=== PATIENT | female | born 1975 | race American Indian/Alaskan Native ===

== ENCOUNTER 2018-03-16 06:36 | Emergency (ER) | payer SELFPAY ==
[2018-03-16 06:42] VITALS: BP 159/102
[2018-03-16 07:41] LABS: Bacteria,Urine 4+ /HPF (Negative); Bilirubin,Urine NEG (Negative); Blood,Urine SM (Negative); Color,Urine Yellow (Yellow); Mucus,Urine FEW /HPF; Urobilinogen,Urine < 2.0 mg/dL (<2.0)
--- NOTE | 2018-03-16 07:41 | Emergency Department Report ---
ED Fall HPI - General Chief Complaint: Fall Stated Complaint: HEADACHE,LEFT NECK PAIN Time Seen by Provider: 03/16/18 07:40 Source: patient Mode of arrival: Ambulatory Limitations: No Limitations - History of Present Illness Initial Comments: This is a 43 y.o. female that presents with left side neck and occipital pain s/ p fall 3 days ago. Patient reports falling in back yard while running from her Thursday night in her backyard. [place] and unsure if she tripped over something. She reported pulling has been on top of her when she initially fell. She is unsure if she hit her head on something. She felt fine initially but when she woke up the next morning felt stiffness to left side of neck. Patient reports feeling stiffness and numbness to left side of neck the next morning. Patient denies loss of consciousness, fever, nausea or vomiting, visual changes, chest pain, deformity, erythema or swelling. 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 denies: headache, numbness, weakness, chest paint, shortness of breath, abdominal pain, hematuria, unable to walk, lightheaded, vertigo, confusion - Related Data Previous Rx's Medication Instructions Recorded Last Taken Type Ibuprofen [Motrin 800 MG tab] 800 mg PO Q8HR PRN #20 tablet 03/16/18 Unknown Rx Tizanidine HCl [Zanaflex] 2 mg PO TID PRN #15 capsule 03/16/18 Unknown Rx traMADol [Ultram 50 MG tab] 50 mg PO Q6HR PRN #15 tablet 03/16/18 Unknown Rx Allergies Allergy/AdvReac Type Severity Reaction Status Date / Time No Known Allergies Allergy Verified 03/16/18 06:43 ED Review of Systems ROS: Stated complaint: HEADACHE,LEFT NECK PAIN Other details as noted in HPI Constitutional: denies: chills, fever Respiratory: denies: cough, shortness of breath, wheezing Cardiovascular: denies: chest pain, palpitations Gastrointestinal: denies: abdominal pain, nausea, vomiting, diarrhea Musculoskeletal: arthralgia (left neck pain). denies: back pain, joint swelling Skin: denies: rash, lesions Neurological: headache. denies: weakness, paresthesias Psychiatric: denies: anxiety, depression ED Past Medical Hx - Past Medical History Hx Hypertension: Yes Additional medical history: Lupus, hyperlipidemia - Surgical History Past Surgical History?: Yes Additional Surgical History: - Social History Smoking Status: Never Smoker Substance Use Type: Alcohol - Medications Home Medications: Home Medications Medication Instructions Recorded Confirmed Last Taken Type Ibuprofen [Motrin 800 MG tab] 800 mg PO Q8HR PRN #20 tablet 03/16/18 Unknown Rx Tizanidine HCl [Zanaflex] 2 mg PO TID PRN #15 capsule 03/16/18 Unknown Rx traMADol [Ultram 50 MG tab] 50 mg PO Q6HR PRN #15 tablet 03/16/18 Unknown Rx ED Physical Exam - General Limitations: No Limitations General appearance: alert, in no apparent distress - Neck Neck exam: Present: tenderness (midline tenderness in C2 through C4, palpable muscle spasm on left). Absent: full ROM (Limited range of motion secondary pain ), lymphadenopathy - Respiratory Respiratory exam: Present: normal lung sounds bilaterally. Absent: respiratory distress - Cardiovascular Cardiovascular Exam: Present: regular rate, normal rhythm. Absent: systolic murmur, diastolic murmur, rubs, gallop - GI/Abdominal GI/Abdominal exam: Present: soft, normal bowel sounds - Neurological Exam Neurological exam: Present: alert, oriented X3 - Psychiatric Psychiatric exam: Present: normal affect, normal mood - Skin Skin exam: Present: warm, dry, intact, normal color. Absent: rash ED Course Vital Signs 03/16/18 03/16/18 06:35 06:43 Temperature 97.9 F 98.1 F Pulse Rate 100 H 96 H Respiratory 18 16 Rate Blood Pressure 159/102 159/102 O2 Sat by Pulse 100 98 Oximetry ED Medical Decision Making - Lab Data Result diagrams: 03/16/18 08:35 - Radiology Data Radiology results: report reviewed CT HEAD WITHOUT CONTRAST: HISTORY: Fall. TECHNIQUE: Sequential 2.5mm CT images. COMPARISON: none. FINDINGS: Cerebral Parenchyma: Within normal limits. Cerebellum: Within normal limits. Brainstem: Within normal limits. Ventricles: Normal. Sella: Normal. Extra-axial spaces: Normal. Basal Cisterns: Normal. Intracranial Hemorrhage: None. Midline Shift: None. Calvarium: Normal. Sinuses: Normal. Mastoid Air Cells: Normal. Visualized Orbits: Normal. IMPRESSION: Cranial CT scan within normal limits. No acute process noted. CT SCAN OF THE CERVICAL SPINE: HISTORY: Fall. TECHNIQUE: Contiguous 1.25 mm axial images of the cervical spine were obtained. Sagittal and coronal reformatted images. FINDINGS: A mildly displaced fracture is identified involving the left transverse process of C3. Fracture lines are identified through the left transverse foramen. Small bony fragments are also identified within the left transverse foramen. The integrity of the left vertebral artery is unclear. No large area of hemorrhage is appreciated in this area. No additional cervical fractures are detected. There is mild reversal of the normal cervical lordosis. Mild degenerative disc disease is noted at C5-6. The remaining levels are unremarkable. No evidence for subluxation. Although intraspinal contents can be obscured on CT, no large epidural hematoma is suspected. IMPRESSION: Left transverse process fracture at C3 with involvement of the transverse foramen. Please see above. These findings were discussed with Dr. Garcia in the emergency department at 0810 hrs. CTA NECK: HISTORY: Fracture left transverse process. TECHNIQUE: Helical CT following IV contrast. Sagittal and coronal reformatted images. 3D volume rendering technique. Stenosis was calculated using NASCET criteria. FINDINGS: The visualized aortic arch, innominate artery and proximal bilateral subclavian arteries are widely patent with less than 20% stenosis. Within the right carotid system: Less than 20% stenosis. Within the left carotid system: Less than 20% stenosis. The cervical vertebral arteries are patent with less than 20% stenosis. Mildly displaced fracture of the left C3 transverse process is again identified. A bony fragment is identified within the transverse foramen but there is no evidence for injury to the left vertebral artery on CTA. No obvious extravasation of contrast. No thrombosis. IMPRESSION: Unremarkable CTA of the neck. The left vertebral artery appears intact on CTA. Please see above and consider further consultation. - Medical Decision Making This is a 43 y.o. female presents with neck pain and headache from falling 3 days ago at home. Patient was examined by me. History of hypertension, hyperlipidemia, and lupus. Hypertension, patient have history and did not take blood pressure medication prior to coming in, she is asymptomatic. Patient will take blood pressure medication when she arrives home. Obtained urinalysis , urine hCG, CMP, CT of cervical spine and head. Small blood, positive nitrates in urinalysis, negative hcg. Unremarkable CMP. Scans were read by radiologist, normal head CT scan, Left transverse process fracture at C3 with involvement of the transverse foramen. Please see above. These findings were discussed with Dr. Garcia in the emergency department at 0810 hrs. ordered CTA of neck, Mildly displaced fracture of the left C3 transverse process is again identified. A bony fragment is identified within the transverse foramen but there is no evidence for injury to the left vertebral artery on CTA. No obvious extravasation of contrast. No thrombosis. Consulted with Dr. Bentley orthopedics , start muscle relaxers and pain medication. Start Zanaflex, tramadol, and ibuprofen for pain. Follow up with Dr. Bentley in 2-3 days. Critical care attestation.: If time is entered above; I have spent that time in minutes in the direct care of this critically ill patient, excluding procedure time. ED Disposition Clinical Impression: Fracture of transverse process of cervical vertebra Qualifiers: Encounter type: initial encounter Fracture type: closed Qualified Code(s): S12.9XXA - Fracture of neck, unspecified, initial encounter Fall Qualifiers: Encounter type: initial encounter Qualified Code(s): W19.XXXA - Unspecified fall, initial encounter Disposition: TO HOME OR SELFCARE Is pt being admited?: No Does the pt Need Aspirin: No Condition: Stable Instructions: Cervical Fracture (ED), Soft Cervical Collar (ED) Additional Instructions: Rest Use ice or heat on affected area for 20 minutes and off for 2 hours. Take pain medication every 6 hours as needed for pain. Avoid driving or operating heavy machinery while taking muscle relaxers. Follow up with Primary Care Provider in 2-3 days. Prescriptions: Ibuprofen [Motrin 800 MG tab] 800 mg PO Q8HR PRN #20 tablet PRN Reason: Pain, Moderate (4-6) Tizanidine HCl [Zanaflex] 2 mg PO TID PRN #15 capsule PRN Reason: Muscle Spasm traMADol [Ultram 50 MG tab] 50 mg PO Q6HR PRN #15 tablet PRN Reason: Pain Referrals: SANDOR BENTLEY MD [Staff Physician] - 3-5 Days [facility] [Outside] - 3-5 Days Forms: Accompanied Note Time of Disposition: 11:12 Print Language: NAMIBIAN
[2018-03-16 07:44] LABS: HCG Qualitative,Urine Negative (Negative)
--- NOTE | 2018-03-16 08:11 | Cat Scan Report ---
CT HEAD WITHOUT CONTRAST: HISTORY: Fall. TECHNIQUE: Sequential 2.5mm CT images. COMPARISON: none. FINDINGS: Cerebral Parenchyma: Within normal limits. Cerebellum: Within normal limits. Brainstem: Within normal limits. Ventricles: Normal. Sella: Normal. Extra-axial spaces: Normal. Basal Cisterns: Normal. Intracranial Hemorrhage: None. Midline Shift: None. Calvarium: Normal. Sinuses: Normal. Mastoid Air Cells: Normal. Visualized Orbits: Normal. IMPRESSION: Cranial CT scan within normal limits. No acute process noted.
--- NOTE | 2018-03-16 08:19 | Cat Scan Report ---
CT SCAN OF THE CERVICAL SPINE: HISTORY: Fall. TECHNIQUE: Contiguous 1.25 mm axial images of the cervical spine were obtained. Sagittal and coronal reformatted images. FINDINGS: A mildly displaced fracture is identified involving the left transverse process of C3. Fracture lines are identified through the left transverse foramen. Small bony fragments are also identified within the left transverse foramen. The integrity of the left vertebral artery is unclear. No large area of hemorrhage is appreciated in this area. No additional cervical fractures are detected. There is mild reversal of the normal cervical lordosis. Mild degenerative disc disease is noted at C5-6. The remaining levels are unremarkable. No evidence for subluxation. Although intraspinal contents can be obscured on CT, no large epidural hematoma is suspected. IMPRESSION: Left transverse process fracture at C3 with involvement of the transverse foramen. Please see above. These findings were discussed with Dr. Garcia in the emergency department at 0810 hrs.
[2018-03-16 09:06] LABS: Alanine Aminotransferase 7 units/L (7-56); BUN/Creatinine Ratio 18; Blood Urea Nitrogen 11 mg/dL (7-17); Calcium 9.4 mg/dL (8.4-10.2); Hemolysis Index 1
--- NOTE | 2018-03-16 09:31 | Emergency Department Report ---
Blank Doc - Documentation Documentation: I spoke with Dr. Gonsales radiologist regarding cervical spine fx through the transverse foramen. I evaluated Ms. Miller. The injury took place 3 days earlier. She is neurovascularly intact. I am supervising this case. I discussed case with my ED colleague Mrs. Arciniega MAIL LIST LIBRARIAN. I recommended CT angiogram to rule out injury to the vertebral artery. Also recommended consultation with spine surgeon.
--- NOTE | 2018-03-16 10:00 | Cat Scan Report ---
CTA NECK: HISTORY: Fracture left transverse process. TECHNIQUE: Helical CT following IV contrast. Sagittal and coronal reformatted images. 3D volume rendering technique. Stenosis was calculated using NASCET criteria. FINDINGS: The visualized aortic arch, innominate artery and proximal bilateral subclavian arteries are widely patent with less than 20% stenosis. Within the right carotid system: Less than 20% stenosis. Within the left carotid system: Less than 20% stenosis. The cervical vertebral arteries are patent with less than 20% stenosis. Mildly displaced fracture of the left C3 transverse process is again identified. A bony fragment is identified within the transverse foramen but there is no evidence for injury to the left vertebral artery on CTA. No obvious extravasation of contrast. No thrombosis. IMPRESSION: Unremarkable CTA of the neck. The left vertebral artery appears intact on CTA. Please see above and consider further consultation.
== END 2018-03-16 11:22 | disposition home or self-care (01) ==
LOC: ED 06:36
DX: S12.9XXA Fracture of neck, unspecified, initial encounter (principal); R51 Headache; W01.0XXA Fall on same level from slipping, tripping and stumbling without subsequent striking against object, initial encounter; Y93.89 Activity, other specified; Y92.096 Garden or yard of other non-institutional residence as the place of occurrence of the external cause; Y99.8 Other external cause status
CPT/HCPCS: 36415; 70450; 70498; 72125; 80053; 81001; 81025; 99284; Q9967

== ENCOUNTER 2021-05-10 13:06 | Emergency (ER) | payer SELFPAY | END 2021-05-10 13:11 | disposition left against medical advice (07) | LOC: ED 13:06 | DX: M25.569 Pain in unspecified knee (principal); Z53.21 Procedure and treatment not carried out due to patient leaving prior to being seen by health care provider ==